=== PATIENT | female | born 1955 | race Caucasian/White ===

== ENCOUNTER 2016-06-13 06:47 | Inpatient (IN) | payer BC ==
--- NOTE | ~2016-06-13 | DS ---
Unit #: [id number] #: [id number] Patient: MAGDALENA VELEZ [id number] [address] [address] [id number] I MR#: [id number] NAME: MAGDALENA VELEZ ROOM: 451 Age: 61 Sex: F Admission Date: 06/13/2016 : 1955 Discharge Date: 06/14/2016 Attending Physician: Enrique Killian M.D. Primary Care Physician: Lavonne Zurita M.D. DISCHARGE SUMMARY ADMITTING PHYSICIAN Dr. Killian. ADMITTING DIAGNOSIS Left knee, osteoarthritis. DISCHARGE DIAGNOSIS Left knee, osteoarthritis. HOSPITAL COURSE On June 13, 2016, Ms. Velez underwent a left total knee arthroplasty. She tolerated the procedure well. She was transported to the fourth floor where she underwent physical therapy, medical management, and anticoagulation therapy. She is doing well and is ready to be discharged. DISPOSITION Stable, discharge home with home health to follow. DISCHARGE MEDICATIONS 1. [place] 10/325. 2. Coumadin 6 mg p.o. daily. FOLLOWUP AND INSTRUCTIONS Ms. Velez is going to be discharged home with home health. An INR is to be drawn every Monday and in addition to tomorrow, June 15, 2016. Call the results into our office and will go ahead and dose the patient for one month. Physical therapy is to be done for active range of motion, strengthening, and progressive ambulation. The patient will be on a walker for four weeks and a cane for an additional two weeks. Followup appointment with Dr. Killian is in six weeks. Please call our office for that appointment date and time. Dictated by... Jennifer Tracey for Keke Overton/deirdre TD: 06/16/2016 12:56 JOB #: [id number] Unit #: [id number] #: [id number] Patient: MAGDALENA VELEZ DISCHARGE SUMMARY X Vanesa Oliveros X DISCHARGE SUMMARY
--- NOTE | ~2016-06-13 | OR ---
Unit #: [id number] #: [id number] Patient: MAGDALENA VLEEZ [id number] [address] [place], [place] [address] [id number] I MR#: [id number] NAME: MAGDALENA VELEZ ROOM: [facility] Date of Procedure: 06/13/2016 Admission Date: 06/13/2016 Surgeon: Enrique Killian M.D. : 1955 Attending Physician: Enrique Killian M.D. Primary Care Physician: Lavonne Zurita M.D. OPERATIVE REPORT PREOPERATIVE DIAGNOSIS Primary localized osteoarthritis of the left knee. POSTOPERATIVE DIAGNOSIS Primary localized osteoarthritis of the left knee. PROCEDURE PERFORMED Left total knee. ASSISTANTS Vanesa Oliveros and Franklin Hassan. ANESTHESIA Adductor canal block plus general. ESTIMATED BLOOD LOSS 100 mL. INDICATIONS FOR PROCEDURE This is a 61-year-old lady with severe pain in her left knee. It has gotten progressively worse. She has tried injections and anti-inflammatories with no relief of her discomfort. Her x-rays show that she has wjkh-ye-vboa with subchondral sclerosis. DESCRIPTION OF PROCEDURE The patient was brought to the operating room, given 2 g of Kefzol. This will be continued postop, but discontinued within 23 hours the start time of surgery. She was then given an adductor canal block and brought back to the operating room, given a general anesthetic. Tourniquet placed around the left thigh. The left leg was prepped and draped in sterile fashion. Tourniquet was inflated to 250. A straight anterior skin incision was made. The subcutaneous dissected away and a medial arthrotomy performed. Patella was slid to the side. Osteophytes removed from the femur. The intramedullary guide was used and a 6-degree valgus cut was made on the distal femur. The femur was sized and found to be a size 3. The anterior-posterior cutting block was applied. Rotation was checked in the knee. Anterior and posterior cuts were made along with the chamfer cuts. Proximal tibial cut was made using a 0-degree cutting block. It was sized at a 2.5. The posterior condylar osteophytes were removed. The remaining meniscal fragments were debrided. The patient then had the posterior capsule and periosteum was injected with ropivacaine. The trial femur was applied. The drill holes were made for Unit #: [id number] #: [id number] Patient: MAGDALENA VELEZ on the femoral component. Trial tibia was applied with an 8 insert. The knee came to full extension and good stability in extension and flexion. Rotation of the tibia was marked and the external alignment guide showed appropriate alignment of the limb. The patella was grasped with 2 towel clips, measured 25 mm thick, cut smooth at 14 and 41 patella was the appropriate size. The 3 drill holes were made. Trial patella applied and it tracked properly. We then removed all the trials. We used the drill and punch for the tibial tray. The knee was irrigated and dried while the cement was mixed and all 3 components were cemented simultaneously. Once again, it was size 3 femur, 2.5 tray, and a 41 patella from [employer] P[employer] Sigma knee system. After the cement was hardened, it was judged that the 8 insert was the appropriate thickness, so this was opened and applied to the tibial tray. The tourniquet was released. Hemostasis was obtained and the rest of ropivacaine mixture was injected. The wound was irrigated with a dilute Betadine solution and closed using 0 Ethibond in the arthrotomy, 0 and 2-0 Vicryl in the subcutaneous, and maggie in the skin. library technical assistant, Vanesa Oliveros was present throughout the entire case. Dictated by... Keke Overton/debbie TD: 06/14/2016 03:01 JOB #: [id number] OPERATIVE REPORT X Enrique Killian MD PROCEDURE OPERATIVE NOTE
[~2016-06-13 06:47] MED LIST: ASPIRIN EC81 M1 PO; CINNAMON ALPHA1 EACH PO; CLARITIN10 M3 PO; CLOBETASOL E 0.60 GM TOP; FLONASE 0.05% N16 GM; JANUVIA PO; LISINOPRIL2.5 MG PO; MELOXICAM15 MG PO; MULTIVITAMIN1 UDCAP PO; PRAVASTATIN SOD20 MG PO; PROTONIX PO; TOPROL XL100 MG PO
[2016-06-13 08:04] LABS: INR 0.9; PROTHROMBIN TIME (PATIENT) 9.8 SECONDS (9.6-11.5)
[2016-06-14 03:27] LABS: HEMATOCRIT 37.3 % (35.0-45.0); HEMOGLOBIN 12.2 gm/dL (12.0-16.0)
[2016-06-14 03:47] LABS: INR 1.2; PROTHROMBIN TIME (PATIENT) 13.2 SECONDS (9.6-11.5)
[2016-06-14 04:04] LABS: BLOOD UREA NITROGEN 16 mg/dL (9-23); BUN/CREATININE RATIO 17.77; CALCIUM SERUM 8.5 mg/dL (8.4-10.2); CARBON DIOXIDE 29 mmol/L (22-31); CHLORIDE 105 mmol/L (100-111); CREATININE SERUM 0.9 mg/dL (0.6-1.4); GLOM FILT RATE Estimated ABOVE60 mL/min (>60); GLUCOSE FASTING 136 mg/dL (70-110); MAGNESIUM 1.8 mg/dL (1.6-3.0); POTASSIUM 4.2 mmol/L (3.5-5.1); SODIUM 140 mmol/L (135-145)
[2016-06-14] MEDS ORDERED: NORCO 10-325 TA1 TAB PO (12:29)
[2016-06-14] MEDS ORDERED: ZOFRAN PO (12:30)
[2016-06-14] MEDS ORDERED: COUMADIN6 MG PO (12:30)
[2016-11-16] MEDS ORDERED: MULTIVITAMINS1 EAC3 PO (11:13)
[2016-11-16] MEDS ORDERED: MELOXICAM15 MG PO (11:13)
== END 2016-06-14 15:50 | disposition home health service (06) | DRG 470 ==
LOC: CSUR 06:47 → CPACUOF 10:50 → C4B 12:15
PROVIDERS: Orthopaedic Surgery
PROC: 0SRD0J9 Replacement of Left Knee Joint with Synthetic Substitute, Cemented, Open Approach (ICD-10-PCS; principal; 2016-06-13 09:00)
DX: M17.0 Bilateral primary osteoarthritis of knee (principal); I10 Essential (primary) hypertension; K21.9 Gastro-esophageal reflux disease without esophagitis; E11.9 Type 2 diabetes mellitus without complications; Z86.718 Personal history of other venous thrombosis and embolism; R11.0 Nausea; Z79.84 Long term (current) use of oral hypoglycemic drugs
CPT/HCPCS: 80048; 82947; 83735; 85014; 85018; 85610; 97110; 97116; 97162; 97165; C1776; J0131; J0171; J0690; J0735; J1100; J1170; J1650; J1885; J2250; J2405; J2710; J2795; J3010

== ENCOUNTER → 2016-11-16 | Outpatient (CLI) | payer BC ==
[~2016-11-16] MED LIST changes: +COUMADIN6 MG PO; +HYDROCODON-ACE1 EAC5 PO; +MULTIVITAMINS1 EAC3 PO; +NORCO 10-325 TA1 TAB PO; +ZOFRAN PO
--- NOTE | ~2016-11-16 | US84 ---
[id number] [facility]. [facility] [address] [place], [place] [address] [id number] O MR#: [id number] Acc #: [id number] NAME: MAGDALENA VELEZ : 1955 SEX: F STUDY DATE/TIME: 11/16/2016 12:14 UNIT: [facility] ROOM: STUDY DESCRIPTION: US LE Veins Complete Adelso Stdy Attending Physician: Enrique Killian M.D. Referring Physician: Enrique Killian M.D. Ordering Physician: Enrique Killian M.D. Primary Care Physician: Lavonne Zurita M.D. MEDICAL IMAGING REPORT This report is preliminary unless electronic signature is present EXAM Bilateral lower extremity venous duplex, 11/16/2016 HISTORY Bilateral lower extremity edema for 1-1/2 weeks, right greater than left. Left total knee replacement. Evaluate for deep vein thrombosis. TECHNIQUE Venous ultrasound examination of both lower extremities was performed using grayscale, spectral Doppler and color flow Doppler imaging. FINDINGS The examination is negative. There is no evidence of deep venous thrombus from the groin to the lower calf bilaterally. Visualized greater saphenous veins are also patent. IMPRESSION Negative examination. No evidence of bilateral lower extremity deep venous thrombosis. Dictated by... Luis Parker M.D. THIS IS AN ELECTRONICALLY VERIFIED REPORT Luis Parker M.D. at 11/17/2016 7:33 AM Bhanu TD: 11/16/2016 14:56 JOB #: [id number] MEDICAL IMAGING REPORT Page 1 of 1 COPY
--- NOTE | ~2016-11-16 | CO ---
Unit #: [id number] #: [id number] Patient: MAGDALENA VELEZ [id number] [address] [place], [place] [address] [id number] O MR#: [id number] NAME: MAGDALENA VELEZ ROOM: Age: 61 Sex: F Admission Date: 11/16/2016 : 1955 Attending Physician: Enrique Killian M.D. Primary Care Physician: Lavonne Zurita M.D. Consultation Date: 11/16/2016 CONSULTATION REPORT REASON FOR CONSULTATION Preop medical evaluation prior to right total knee arthroplasty scheduled by Dr. Killian for 11/30/16. HISTORY OF PRESENT ILLNESS The patient is a 61-year-old female who presents to preprocedural screening for the reasons indicated above. She denies recent or current upper chest, upper back, arm, neck, jaw pain or pressure. Denies dyspnea on exertion, paroxysmal nocturnal dyspnea, snoring or excessive daytime fatigue. She denies lightheaded, dizziness, presyncope, syncope or palpitations. She has been working out at the gym to maintain strength since she underwent left total knee arthroplasty in May of this year. She denies myocardial infarction, congestive heart failure, CVA, TIA, or development of chronic kidney disease since her last preop visit. She does have type 2 diabetes mellitus but is not insulin dependent. She has been evaluated by Dr. Killian and scheduled for the above referenced procedure. PAST MEDICAL HISTORY 1. Osteoarthritis. 2. History of postoperative nausea and vomiting which she relates to pain medications. 3. Type 2 diabetes mellitus, on oral hypoglycemics. 4. Sarcoidosis. 5. Baseline history of bradycardia. 6. Hypertension. 7. GERD. 8. Degenerative disc disease. 9. History of DVT in the lower extremity. PAST SURGICAL HISTORY 1. Bilateral knee arthroscopy. 2. Left total knee arthroplasty in May 2016. The patient denies a personal and family history of complications to anesthesia other than postoperative nausea and vomiting. ALLERGIES Denies latex allergy. Denies medication allergies. CURRENT MEDICATIONS 1. Protonix 40 mg p.o. b.i.d. 2. Januvia 100 mg p.o. every morning. 3. Toprol XL 200 mg p.o. every morning. Unit #: [id number] #: [id number] Patient: MAGDALENA VELEZ 4. Lisinopril 2.5 mg p.o. every morning. 5. Pravastatin sodium 20 mg p.o. every morning. 6. Aspirin EC 81 mg p.o. every morning. 7. Clobetasol E 0.05% cream topically to skin for sarcoidosis as needed. 8. Claritin 10 mg, two at bedtime. 9. Flonase 0.05% nasal spray, one spray in each nostril daily. 10. Meloxicam 15 mg p.o. every morning. 11. Multivitamin, one p.o. daily. SOCIAL HISTORY Denies tobacco use, ETOH use and illicit drug use. FAMILY HISTORY Diabetes, hypertension, hyperlipidemia, myocardial infarction and cancer. REVIEW OF SYSTEMS A ten point review of systems is conducted and negative except as indicated under History of Present Illness above. PHYSICAL EXAMINATION GENERAL: 61-year-old female awake, alert, in no acute distress. VITAL SIGNS: Temperature 97.1, heart rate 60, respiratory rate 20, blood pressure 147/83. Oxygen saturation 99% on room air. HEENT: Atraumatic, normocephalic. Sclerae anicteric. No discharge from eyes, ears or nares. LYMPHS: No preauricular, postauricular, tonsillary, submental, anterior, posterior, cervical adenopathy. ENDOCRINE: No thyromegaly, thyroid nodules or tenderness. RESPIRATORY: Clear to auscultation in all sheets bilaterally without wheezes, rhonchi or rales. CARDIOVASCULAR: S1, S2. Regular rate and rhythm without murmur or rub. GI: Bowel sounds positive x4. Nontender, nondistended. EXTREMITIES: No edema, no cyanosis or clubbing. MUSCULOSKELETAL: Strength 5/5 in all extremities bilaterally to flexion and extension. NEURO: Alert and oriented x3. Speech clear. Follows directions during examination. DIAGNOSTIC STUDIES LABORATORY: WBC 7.8, hemoglobin 15.3, hematocrit 45.9, platelets 248,000. PT 10.3, INR 0.9. Urinalysis - negative with neither microscopic nor culture indicated. Hemoglobin A1c 6.6. Sodium 137, potassium 4.3, chloride 100, CO2 30, glucose 126, BUN 18, creatinine 1.0, calcium 9.5, AST 38, ALT 29, alkaline phos. 55, bili total 0.8, total protein 7.4, albumin 4.2. Blood type 0 positive. Antibody screen negative. MRSA nasal swab report pending at this time. CARDIOLOGY: 12-lead EKG 05/30/16 - sinus bradycardia, no ECG. IMAGIN05/30/16; Conclusion - normal chest. Bilateral lower extremity duplex venous Doppler pending at this time. IMPRESSION Unit #: [id number] #: [id number] Patient: MAGDALENA VELEZ The patient is a 61-year-old female who presents to pre-procedural screening for: 1. Preoperative medical evaluation prior to right total knee arthroplasty as scheduled by Dr. Killian. The patient's [place] Revised Cardiac Risk Index is equal to 0.4% based on information available today. This is the patient's approximate risk of fatal or nonfatal myocardial infarction, cardiopulmonary arrest, arrhythmia and/or pulmonary edema. This has been discussed in detail with the patient, she wishes to proceed with surgery as scheduled at this time. She is to take her home dose of beta franklin per anesthesia guidelines prior to surgery. 2. History of postoperative nausea and vomiting: The patient thinks that this is related to pain medication. The patient has been advised to inform the anesthesiologist of this as well. 3. Type 2 diabetes mellitus, uncontrolled per hemoglobin A1c: Will place patient on constant carbohydrate diet, low dose sliding scale insulin, monitor Accu-Cheks and resume Januvia based on that information. 4. Sarcoidosis: Baseline history of bradycardia. The patient is stable. 5. Hypertension: Monitor blood pressure and adjust medications accordingly. 6. GERD. 7. Osteoarthritis. 8. Degenerative joint disease. 9. History of DVT: Bilateral lower extremity duplex venous Doppler is pending at this time. The results are to be called to Dr. Killian's office and/or fax to [facility] office for my review. Thank you for allowing us to participate in the care of this patient. Will gladly follow her for postop medical management pending order of Dr. Killian. Dictated by... Karly Espino A.P.R.N. for Mirta Coleman M.D. AMMY/kieran TD: 11/16/2016 13:01 JOB #: [id number] CONSULTATION REPORT Page 1 of 1 X Karly Espino APRN CONSULTATION REPORT
[2016-11-16 10:13] LABS: HEMATOCRIT 45.9 % (35.0-45.0); HEMOGLOBIN 15.3 gm/dL (12.0-16.0); MEAN CELL VOLUME 83.7 FL (83-96); MEAN CORPUSCULAR HEMOGLOBIN 27.8 PG (28-34); MEAN CORPUSCULAR HGB CONC 33.2 g/dL (30-36); MEAN PLATELET VOLUME 8.1 FL (6.5-11.5); RED BLOOD COUNT 5.49 X10e (3.90-5.30); RED CELL DISTRIBUTION WIDTH 13.9 % (11.0-15.5); WHITE BLOOD COUNT 7.8 X10e3 (4.0-10.5)
[2016-11-16 10:18] LABS: URINE APPEARANCE CLEAR; URINE BILIRUBIN NEG (NEG); URINE BLOOD NEG (NEG); URINE COLOR YELLOW; URINE GLUCOSE NEG (NEG); URINE KETONE NEG (NEG); URINE LEUKOCYTE ESTERASE NEG (NEG); URINE NITRATE NEG (NEG); URINE PROTEIN NEG (NEG); URINE SPECIFIC GRAVITY 1.009 (1.003-1.035); URINE UROBILINOGEN 0.2 MG/DL (NEG)
[2016-11-16 10:22] LABS: URINE SOURCE CLEAN CATCH
[2016-11-16 10:23] LABS: CULTURE INDICATED? NO
[2016-11-16 10:26] LABS: INR 0.9; PROTHROMBIN TIME (PATIENT) 10.3 SECONDS (10.0-11.7)
[2016-11-16 11:28] LABS: ALBUMIN SERUM 4.2 g/dL (3.5-5.0); BILIRUBIN,TOTAL 0.8 mg/dL (0.2-2.0); CALCIUM SERUM 9.5 mg/dL (8.4-10.2); GLOM FILT RATE Estimated 61.6 mL/min (>60); POTASSIUM 4.3 mmol/L (3.5-5.1); PROTEIN TOTAL SERUM 7.4 g/dL (6.0-8.3)
== END | disposition home or self-care (01) ==
LOC: CAMB 09:37
PROVIDERS: Orthopaedic Surgery
DX: Z01.818 Encounter for other preprocedural examination (principal); M17.11 Unilateral primary osteoarthritis, right knee; M79.605 Pain in left leg; M79.604 Pain in right leg; M79.89 Other specified soft tissue disorders; Z86.718 Personal history of other venous thrombosis and embolism
CPT/HCPCS: 36415; 80053; 81003; 83036; 85027; 85610; 86850; 86900; 86901; 87070; 93970

== ENCOUNTER 2016-11-30 05:12 | Inpatient (IN) | payer BC ==
[~2016-11-30] VITALS: Ht 172.7 cm; Wt 98.8 kg
--- NOTE | ~2016-11-30 | OR ---
Unit #: [id number] #: [id number] Patient: MAGDALENA VELEZ [id number] [address] [place], [place] [address] [id number] I MR#: [id number] NAME: MAGDALENA VELEZ ROOM: 457 Date of Procedure: 11/30/2016 Admission Date: 11/30/2016 Surgeon: Enrique Killian M.D. : 1955 Attending Physician: Enrique Killian M.D. Primary Care Physician: Lavonne Zurita M.D. OPERATIVE REPORT PREOPERATIVE DIAGNOSIS Primary localized osteoarthritis of the right knee. POSTOPERATIVE DIAGNOSIS Primary localized osteoarthritis of the right knee. PROCEDURE PERFORMED Right total knee. SPINE NURSE Franklin Hassan. ANESTHESIA Adductor canal block plus general. ESTIMATED BLOOD LOSS 100 mL. INDICATIONS FOR PROCEDURE This is a 61-year-old with severe pain in her right knee. She has had pain for months. It is getting progressively worse. Her x-rays show she has oecf-ka-jtsy with subchondral sclerosis. She has tried injections and anti-inflammatories with no relief of her discomfort. She is brought to the operating room today for right total knee. DESCRIPTION OF PROCEDURE The patient was brought to the holding room, given 2 g of Ancef. This will be continued postoperatively. She was then given an adductor canal block and brought back to the operating room, given a general anesthetic. Tourniquet placed around the right thigh. The right leg was prepped and draped in a sterile fashion. Tourniquet inflated to 250. A straight anterior skin incision was made. The subcutaneous dissected away and a medial arthrotomy was performed. Patella was slid to the side. Osteophytes removed from the femur. The intramedullary guide was used and a 6-degree valgus cut was made on the distal femur. The femur was sized using the [employer] P[employer] Sigma sizing guide, it was sized and found to be a 4 narrow. The anterior-posterior cutting block was applied. Rotation was checked in the knee. Anterior and posterior cuts were made along with the chamfer cuts. Proximal tibial cut was made using a 0-degree cutting block. It was sized and found to be a 3. We then removed any posterior condylar osteophytes. The remaining meniscal fragments were debrided. The posterior capsule and periosteum were injected with a ropivacaine Unit #: [id number] #: [id number] Patient: MAGDALENA VELEZ. Trial femur was applied. The drill holes were made for lugs on the femoral component. Trial tibia was applied. We found that an 8 mm insert was the appropriate thickness. We then opened the real components. The patella had been cut smooth at 13 after measuring 23 mm thick, and it was a size 38. The three drill holes had been made. After the components were opened, the drill and punch were used to prepare the tibia. The knee was irrigated and dried while the cement was mixed. Then, all 3 components were cemented simultaneously. Once again, it was a 4 narrow femur cruciate retaining, size 3 tibial tray, and a 38 patella. After the cement was hardened, it was judged that the 8 insert was the appropriate thickness, so this was opened and applied to the tray. The tourniquet released. Hemostasis was obtained. The wound irrigated with Betadine and then bacitracin. All the ropivacaine mixture was injected and then the knee was closed using 0 Ethibond in the arthrotomy, 0 and 2-0 Vicryl in the subcutaneous, and maggie in the skin. Dictated by... Keke Overton/debbie TD: 11/30/2016 11:54 JOB #: [id number] OPERATIVE REPORT Page 1 of 1 X Enrique Killian MD X PROCEDURE OPERATIVE NOTE
--- NOTE | ~2016-11-30 | DS ---
Unit #: [id number] #: [id number] Patient: MAGDALENA VELEZ [id number] [address] [place], [place] [address] [id number] MR#: [id number] NAME: MAGDALENA VELEZ ROOM: 457 Age: 61 Sex: F Admission Date: 11/30/2016 : 1955 Discharge Date: 12/01/2016 Attending Physician: Enrique Killian M.D. Primary Care Physician: Lavonne Zurita M.D. DISCHARGE SUMMARY ADMITTING DIAGNOSIS Primary localized osteoarthritis of the right knee. DISCHARGE DIAGNOSIS Primary localized osteoarthritis of the right knee. PROCEDURES PERFORMED Right total knee. HOSPITAL COURSE The patient was admitted yesterday and taken to the operating room, where she underwent a right total knee replacement. Postoperatively she has done well. Her wound is dry. Her neurovascular exam is intact. She is comfortable on her oral pain medicine. Her hemoglobin is 12.3. She is on Coumadin for DVT prophylaxis. Her INR is 1.4. She will be sent home on 6 mg daily. Will check her pro time tomorrow and Monday and adjust the dose appropriately. She is weightbearing as tolerated. She will have physical therapy at home. Will follow up in approximately five weeks. Dictated by... Keke Overton/dae TD: 12/02/2016 09:37 JOB #: [id number] DISCHARGE SUMMARY Page 1 of 1 X Enrique Killian MD X DISCHARGE SUMMARY
[~2016-11-30 05:12] MED LIST changes: -HYDROCODON-ACE1 EAC5 PO
[2016-11-30 06:44] LABS: PROTHROMBIN TIME (PATIENT) 10.4 SECONDS (10.0-11.7)
[2016-12-01 05:06] LABS: HEMATOCRIT 37.3 % (35.0-45.0); HEMOGLOBIN 12.3 gm/dL (12.0-16.0)
[2016-12-01 05:21] LABS: INR 1.4; PROTHROMBIN TIME (PATIENT) 15.4 SECONDS (10.0-11.7)
[2016-12-01 06:47] LABS: GLOM FILT RATE Estimated 61.6 mL/min (>60); MAGNESIUM 1.6 mg/dL (1.6-3.0); POTASSIUM 4.5 mmol/L (3.5-5.1)
[2016-12-01] MEDS ORDERED: COUMADIN6 MG PO (11:32)
[2016-12-01] MEDS ORDERED: HYDROCODON-ACE1 EAC5 PO (11:32)
== END 2016-12-01 12:58 | disposition home health service (06) | DRG 470 ==
LOC: CSUR 05:12 → CPACUOF 06:40 → CSUR 07:00 → CPACUOF 08:53 → CSUR 09:15 → CPACUOF 10:02 → C4B 10:02
PROVIDERS: Nurse Practitioner; Orthopaedic Surgery
PROC: 0SRC0J9 Replacement of Right Knee Joint with Synthetic Substitute, Cemented, Open Approach (ICD-10-PCS; principal; 2016-11-30 07:00)
DX: M17.11 Unilateral primary osteoarthritis, right knee (principal); E11.649 Type 2 diabetes mellitus with hypoglycemia without coma; Z96.652 Presence of left artificial knee joint; I10 Essential (primary) hypertension; K21.9 Gastro-esophageal reflux disease without esophagitis; D86.9 Sarcoidosis, unspecified
CPT/HCPCS: 80048; 82947; 83735; 85014; 85018; 85610; 94010; 94760; 97110; 97116; 97161; 97530; C1713; C1776; G8978-GP; G8979-GP; G8980-GP; J0131; J0171; J0690; J0735; J1100; J1170; J1650; J1885; J2250; J2405; J2795; J3010